=== PATIENT | female | born 1985 | race Caucasian/White ===

== ENCOUNTER 2022-02-07 08:30 | Inpatient (IN) | payer OTHER ==
[2022-02-07] MEDS ORDERED: ELECTROLYTE-148 SOLN 1,000 ML IV SCH (09:30)
[2022-02-07] MEDS ORDERED: OXYTOCIN 30 UNITS in 0.9% NS 30 UNIT/500 ML INFUS.BAG IVPB SCH (09:30)
[2022-02-07 09:42] VITALS: BMI 31.8
[2022-02-07] MEDS ORDERED: OXYTOCIN 30 UNITS in 0.9% NS 30 UNIT/500 ML INFUS.BAG IVPB ONE (09:44)
[2022-02-07] MEDS ORDERED: AMPICILLIN - 2 GM in SODIUM CHLORIDE 100 ML IVPB ONE (10:01)
[2022-02-07] MEDS ORDERED: AMPICILLIN SODIUM 2 GM VIAL ONE (11:00)
[2022-02-07] MEDS ORDERED: AMPICILLIN SODIUM 1 GM VIAL ONE ×2 (13:50→17:39)
[2022-02-07] MEDS: AMPICILLIN - 1 GM in SODIUM CHLORIDE 100 ML IVPB SCH ×2 (14:00→17:46)
[2022-02-07] MEDS ORDERED: PROMETHAZINE HCL 25 MG/1 ML VIAL ONE (14:38)
[2022-02-07] MEDS ORDERED: BUTORPHANOL TARTRATE 1 MG/ML VIAL ONE (14:38)
[2022-02-07] MEDS ORDERED: BUPIVACAINE HCL/PF 0.25% (2.5MG/ML) 10 ML VIAL ONE (15:37)
[2022-02-07] MEDS ORDERED: FENTANYL/BUPIVACAINE/NS/PF - PCEA - 50 ML DISP.SYRIN EP ONE (15:48)
[2022-02-07] MEDS ORDERED: NALOXONE HCL 0.4 MG/ML VIAL IVPUSH PRN (16:04)
[2022-02-07] MEDS ORDERED: PROMETHAZINE HCL 25 MG/1 ML VIAL IVPB ONE (16:10)
[2022-02-07] MEDS ORDERED: BUTORPHANOL TARTRATE 1 MG/ML VIAL IVPB ONE (16:10)
[2022-02-07] MEDS ORDERED: FENTANYL/BUPIVACAINE/NS/PF - PCEA - 50 ML DISP.SYRIN EP SCH (16:15)
[2022-02-07] MEDS ORDERED: OXYTOCIN 20 UNITS in 0.9% NS 20 UNIT/1,000 ML INFUS.BAG IV ONE (17:03)
[2022-02-07] MEDS ORDERED: METHYLERGONOVINE MALEATE 0.2 MG/1 ML AMP IM PRN (21:43)
[2022-02-07] MEDS ORDERED: ACETAMINOPHEN 325 MG TABLET (FP) PO PRN (21:43)
[2022-02-07] MEDS ORDERED: BENZOCAINE 28 GM HEMORRHOIDAL OINTMENT TP PRN (21:43)
[2022-02-07] MEDS ORDERED: oxyCODONE HCL 5 MG TABLET PO PRN (21:43)
[2022-02-07] MEDS ORDERED: WITCH HAZEL 50% (TUCKS) 40 PAD/JAR PAD TP PRN (21:43)
[2022-02-07] MEDS ORDERED: BENZOCAINE 20% 57 GM BOTTLE TP PRN (21:43)
[2022-02-07] MEDS ORDERED: BISACODYL 10 MG SUPP.RECT RC PRN (21:43)
[2022-02-07] MEDS ORDERED: OXYTOCIN 20 UNITS in 0.9% NS 20 UNIT/1,000 ML INFUS.BAG IV SCH (21:45)
[2022-02-08 07:47] LABS: BASO % 0.2 % (0-2.0); EOS % 0.4 % (0-4.5); HEMATOCRIT 35.4 % (32.4-45.2); HEMOGLOBIN 11.9 GM/dL (10.7-15.3); LYMPH % 15.6 % (8-40); MCH 31.3 pg (25.7-33.7); MCHC 33.6 g/dl (32.0-36.0); MEAN CELL VOLUME 93.3 fl (80-96); MEAN PLT VOLUME 8.1 fl (7.5-11.1); MONO % 7.5 % (3.8-10.2); NEUT % 76.3 % (42.8-82.8); PLATELET COUNT 275 10^3/uL (134-434); RBC 3.79 M/mm3 (3.60-5.2); WHITE BLOOD COUNT 14.9 K/mm3 (4.0-10.0)
[2022-02-08] MEDS ORDERED: SENNOSIDES/DOCUSATE COMBO (SENNA PLUS) TABLET (UD) PO PRN (22:00)
[2022-02-09] MEDS: IBUPROFEN 600 MG TABLET (FP) PO PRN ×2 (00:18→09:03)
[2022-02-09 10:03] VITALS: BP 108/66; PULSE 72; TEMP 97.9
== END 2022-02-09 13:45 | disposition home or self-care (01) | DRG 560 ==
LOC: JLDR 08:30 → J3W 23:02
PROVIDERS: ADMIT Specialist; ATTEND Specialist
PROC: 10D07Z6 Extraction of Products of Conception, Vacuum, Via Natural or Artificial Opening (ICD-10-PCS; principal; 2022-02-07)
PROC: 0W8NXZZ Division of Female Perineum, External Approach (ICD-10-PCS; 2022-02-07)
DX: O48.0 Post-term pregnancy (principal); O99.824 Streptococcus B carrier state complicating childbirth; O66.5 Attempted application of vacuum extractor and forceps; Z3A.40 40 weeks gestation of pregnancy; Z37.0 Single live birth
CPT/HCPCS: 36415; 59409; 85025